=== PATIENT | male | born 1940 | race Caucasian/White ===

== ENCOUNTER 2017-02-04 13:15 | Emergency (ER) | payer OTHER ==
[2017-02-04 13:29] VITALS: TEMP 98.6; BMI 22.6
--- NOTE | 2017-02-04 16:31 | PDOC ---
History of Present Illness - General Chief Complaint: Wound Stated Complaint: INJURY Past History - Past Medical History Allergies/Adverse Reactions: Allergies Allergy/AdvReac Type Severity Reaction Status Date / Time No Known Allergies Allergy Verified 02/04/17 13:29 Home Medications: Ambulatory Orders Amlodipine Besylate [Norvasc] 10 mg PO DAILY 09/28/11 Atorvastatin Calcium 20 mg PO DAILY 09/28/11 Benadryl 25 mg PO Q12H 09/28/11 Gabapentin 300 mg PO TID 09/28/11 Metoprolol Tartrate 25 mg PO DAILY 09/28/11 Ranolazine [Ranexa] 500 mg PO BID 09/28/11 Sitagliptin Phosphate [Januvia] 100 mg PO DAILY 09/28/11 Tamsulosin HCl 0.4 mg PO DAILY 09/28/11 Tapentadol HCl [Nucynta] 100 mg PO PRN 09/28/11 Vit B12/Iod/mg/Zn/Se/Herb#193 [Adrenoid Capsule] 1,000 mcg PO DAILY 09/28/11 Anemia: No Asthma: No Cancer: No Cardiac Disorders: Yes (fer) CVA: No COPD: No CHF: No Dementia: No Diabetes: Yes GI Disorders: No Disorders: No HTN: Yes Hypercholesterolemia: Yes Liver Disease: No Seizures: No Thyroid Disease: No - Surgical History Cardiac Surgery: Yes (fer) - Psycho/Social/Smoking Cessation Hx Suicidal Ideation: No Smoking History: Former smoker Have you smoked in the past 12 months: No If you are a former smoker, when did you quit?: many years ago Information on smoking cessation initiated: No *Physical Exam - Vital Signs Last Vital Signs Temp Pulse Resp BP Pulse Ox 98.6 F 88 18 146/80 100 02/04/17 13:26 02/04/17 13:26 02/04/17 13:26 02/04/17 13:26 02/04/17 13:26
--- NOTE | 2017-02-04 16:35 | PDOC ---
History of Present Illness <Michelle Pickett Joanne - Last Filed: 02/04/17 18:18> - General History Source: Patient Exam Limitations: Dementia, Language Barrier - History of Present Illness Initial Comments: 02/04/17 17:18 76 y/o M with a PMHx of HTN, hypercholesterolemia, diabetes, CABG presents to the ED with right shoulder pain s/p mechanical fall yesterday. Patient reports he usually goes to [facility] ER, but heard the X-Rays are better here. He also reports bilateral lower leg edema, which he states is chronic since November 2016 from his hip surgery. Patient is a poor historian. 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 There is no evidence of blood thinners in his medication list. Patient states he is currently taking the following medications daily: Lasix (20 mg), Metoprolol (25 mg), Isosorbide ER (30 mg), and Dutasterida (0.5 mg). Patient's PCP was paged to obtain more information, but PCP does not take calls. Denies chest pain, SOB, headache, dizziness. Denies numbness or tingling. Denies fever, chills, cough, nausea, vomiting, diarrhea, constipation. Denies any other complaints. PCP: Dr. Soham Gonzalez <Shanique Newman - Last Filed: 02/04/17 18:45> - General Chief Complaint: Wound Stated Complaint: INJURY Time Seen by Provider: 02/04/17 16:35 Past History - Past Medical History Anemia: No Asthma: No Cancer: No Cardiac Disorders: Yes (fer) CVA: No COPD: No CHF: No Dementia: No Diabetes: Yes GI Disorders: No Disorders: No HTN: Yes Hypercholesterolemia: Yes Liver Disease: No Seizures: No Thyroid Disease: No - Surgical History Cardiac Surgery: Yes (fer) - Psycho/Social/Smoking Cessation Hx Suicidal Ideation: No Smoking History: Former smoker Have you smoked in the past 12 months: No If you are a former smoker, when did you quit?: many years ago Information on smoking cessation initiated: No <PiyushMichellechristine Rubio - Last Filed: 02/04/17 18:18> <Shanique Newman - Last Filed: 02/04/17 18:45> - Past Medical History Allergies/Adverse Reactions: Allergies Allergy/AdvReac Type Severity Reaction Status Date / Time No Known Allergies Allergy Verified 02/04/17 13:29 Home Medications: Ambulatory Orders Amlodipine Besylate [Norvasc] 10 mg PO DAILY 09/28/11 Atorvastatin Calcium 20 mg PO DAILY 09/28/11 Ranolazine [Ranexa] 500 mg PO BID 09/28/11 Sitagliptin Phosphate [Januvia] 100 mg PO DAILY 09/28/11 Tapentadol HCl [Nucynta] 100 mg PO PRN 09/28/11 Vit B12/Iod/mg/Zn/Se/Herb#193 [Adrenoid Capsule] 1,000 mcg PO DAILY 09/28/11 Diphenhydramine HCl [Benadryl -] 25 mg PO Q6H 02/04/17 Gabapentin 300 mg PO DAILY 02/04/17 Metoprolol Tartrate 25 mg PO DAILY 02/04/17 Tamsulosin HCl [Flomax] 0.4 mg PO DAILY 02/04/17 Review of Systems - Review of Systems Able to Perform ROS?: Yes Comments:: 02/04/17 17:50 CONSTITUTIONAL: Absent: fever, chills, diaphoresis, generalized weakness, malaise, loss of appetite HEENT: Absent: rhinorrhea, nasal congestion, throat pain, throat swelling, difficulty swallowing, mouth swelling, ear pain, eye pain, visual changes CARDIOVASCULAR: (+) bilateral lower extremity edema. Absent: chest pain, syncope , palpitations, irregular heart rate, lightheadedness RESPIRATORY: Absent: cough, shortness of breath, dyspnea with exertion, orthopnea, wheezing, stridor, hemoptysis GASTROINTESTINAL: Absent: abdominal pain, abdominal distension, nausea, vomiting , diarrhea, constipation, melena, hematochezia GENITOURINARY: Absent: dysuria, frequency, urgency, hesitancy, hematuria, flank pain, genital pain MUSCULOSKELETAL: (+) right shoulder pain. SKIN: Absent: rash, itching, pallor HEMATOLOGIC/IMMUNOLOGIC: Absent: easy bleeding, easy bruising, lymphadenopathy, frequent infections ENDOCRINE: Absent: unexplained weight gain, unexplained weight loss, heat intolerance, cold intolerance NEUROLOGIC: Absent: headache, focal weakness or paresthesias, dizziness, unsteady gait, seizure, mental status changes, bladder or bowel incontinence PSYCHIATRIC: Absent: anxiety, depression, suicidal or homicidal ideation, hallucinations. <Shanique Newman - Last Filed: 02/04/17 18:45> *Physical Exam - Vital Signs Last Vital Signs Temp Pulse Resp BP Pulse Ox 98.6 F 88 18 146/80 100 02/04/17 13:26 02/04/17 13:26 02/04/17 13:26 02/04/17 13:26 02/04/17 13:26 <Michelle Pickett - Last Filed: 02/04/17 18:18> - Vital Signs Last Vital Signs Temp Pulse Resp BP Pulse Ox 98.6 F 88 18 146/80 100 02/04/17 13:26 02/04/17 13:26 02/04/17 13:26 02/04/17 13:26 02/04/17 13:26 - Physical Exam Comments: 02/04/17 17:52 GENERAL: Well developed, well nourished. Awake and alert. No acute distress. Thin. HEENT: No evidence of any trauma. Normocephalic, PERRLA, EOMI. No conjunctival pallor. Sclera are non-icteric. Moist mucous membranes. Oropharynx is clear. NECK: Supple. Full ROM. No JVD. Carotid pulses 2+ and symmetric, without bruits. No thyromegaly. No lymphadenopathy. CARDIOVASCULAR: Regular rate and rhythm. No murmurs, rubs, or gallops. Distal pulses are 2+ and symmetric. PULMONARY: No evidence of respiratory distress. Lungs clear to auscultation bilaterally. No wheezing, rales or rhonchi. ABDOMINAL: Soft. Non-tender. Non-distended. No rebound or guarding. No organomegaly. Normoactive bowel sounds. MUSCULOSKELETAL: Tenderness on right upper scapula and right AC joint. Able to raise both arms equally, with limited mobility. No obvious bony deformities. No CVA tenderness. BACK: No cervical vertebral tenderness. EXTREMITIES: Good DP and TP pulses bilaterally. Good radial and ulnar pulses and are equal bilaterally. Chronic venous stasis. Chronic mild peripheral edema. Feet are warm. No active cellulitis. SKIN: Scar on right hip. Old fem pop scar on left leg. Warm and dry. Normal capillary refill. No rashes. No jaundice. NEUROLOGICAL: Alert, awake, ambulatory. Cranial nerves 2-12 intact. No deficits to light touch and temperature in face, upper extremities and lower extremities. No motor deficits in the in face, upper extremities and lower extremities. Normoreflexic in the upper and lower extremities. Normal speech. PSYCHIATRIC: Cooperative. Good eye contact. Appropriate mood and affect. <Shanique Newman - Last Filed: 02/04/17 18:45> ED Treatment Course - RADIOLOGY Radiograph Interpretation: 02/04/17 18:39 Shoulder X-Ray Reported by Dr. Heraclio Casas Impression: No radiographic evidence of acute pathology. <Shanique Newman - Last Filed: 02/04/17 18:45> Medical Decision Making - Medical Decision Making 02/04/17 17:03 76-year-old male who is a poor historian presents without family members and states he is here to have an x-ray of his right shoulder. He [facility]. [facility] <Michelle Pickett - Last Filed: 02/04/17 18:18> - Medical Decision Making 02/04/17 18:[address] Michel Sharma at 16:54. . Paged Dr. Soham Gonzalez at 16:58. . <Shanique Newman - Last Filed: 02/04/17 18:45> *DC/Admit/Observation/Transfer <Michelle Pickett - Last Filed: 02/04/17 18:18> - Attestations Scribe Attestion: 02/04/17 18:12 Documentation prepared by Shanique Newman, acting as medical laboratory specialist for Michelle Pickett MD. <Shanique Newman - Last Filed: 02/04/17 18:45> Diagnosis at time of Disposition: Right shoulder pain Qualifiers: Chronicity: acute Qualified Code(s): M25.511 - Pain in right shoulder - Discharge Dispostion Disposition: HOME Condition at time of disposition: Stable - Referrals Referrals: Soham Gonzalez [Primary Care Provider] - - Patient Instructions Printed Discharge Instructions: DI for Shoulder Pain Additional Instructions: please take Tylenol for pain If your pain persists ,please see your regular doctor next week return for any worsening symptoms
[2017-02-04] MEDS ORDERED: ACETAMINOPHEN 325 MG TABLET (FP) PO ONE (18:24)
[2017-02-04] MEDS ORDERED: ACETAMINOPHEN 325 MG TABLET (FP) ONE (18:36)
[2017-02-04 18:44] VITALS: BP 151/79; PULSE 72
== END 2017-02-04 18:43 | disposition home or self-care (01) ==
LOC: JER 13:15
DX: M25.511 Pain in right shoulder (principal); R60.0 Localized edema; M79.604 Pain in right leg; M79.605 Pain in left leg; W19.XXXA Unspecified fall, initial encounter; Y93.89 Activity, other specified; Y92.89 Other specified places as the place of occurrence of the external cause; I25.10 Atherosclerotic heart disease of native coronary artery without angina pectoris; I10 Essential (primary) hypertension; Z95.1 Presence of aortocoronary bypass graft; E11.9 Type 2 diabetes mellitus without complications; Z79.84 Long term (current) use of oral hypoglycemic drugs; E78.00 Pure hypercholesterolemia, unspecified
CPT/HCPCS: 73030-TC-RT; 99284-25

== ENCOUNTER 2018-04-12 14:47 | Emergency (ER) | payer OTHER ==
[2018-04-12 14:58] VITALS: BP 149/71; PULSE 83; TEMP 98; BMI 26.1
--- NOTE | 2018-04-12 16:27 | PDOC ---
History of Present Illness - General Chief Complaint: Pain, Acute Stated Complaint: EVALUATION Time Seen by Provider: 04/12/18 15:32 History Source: Patient Exam Limitations: Language Barrier - History of Present Illness Initial Comments: 04/12/18 16:22 Pt is a 77yo m with PMH of DM, HTN, DM, CAD s/p stent 4 years ago presenting to ED because "my liver is no good". Pt sees Dr. Gonzalez and had blood tests done at [facility] about 1 week ago. He was told to see a liver specialist. Appointment was scheduled 5 weeks from now but pt is apprehensive and wants an appointment sooner. He admits to intermittent abdominal pain that has been going on for 5 months, constipation, pain with urination and nausea. He denies chest pain, SOB, vomiting, diarrhea, bloody stools, hematuria, fevers, chills. Still tolerating PO. Last BM was yesterday. PMD: Carlos PMH: see hpi PSH: see hpi Meds: see med rec Social: denies Allergies: nkda Past History - Past Medical History Allergies/Adverse Reactions: Allergies Allergy/AdvReac Type Severity Reaction Status Date / Time No Known Allergies Allergy Verified 04/12/18 14:55 Home Medications: Ambulatory Orders Amlodipine Besylate [Norvasc] 10 mg PO DAILY 09/28/11 Atorvastatin Calcium 20 mg PO DAILY 09/28/11 Metoprolol Tartrate 25 mg PO DAILY 02/04/17 Tamsulosin HCl [Flomax] 2 cap PO DAILY 02/04/17 Clopidogrel Bisulfate [Plavix -] 75 mg PO DAILY 04/12/18 Donepezil HCl [Aricept -] 5 mg PO DAILY 04/12/18 Dutasteride [Avodart] 0.5 mg PO DAILY 04/12/18 Furosemide [Lasix -] 20 mg PO DAILY 04/12/18 Levothyroxine [Synthroid -] 50 mcg PO DAILY 04/12/18 Linagliptin [Tradjenta] 5 mg PO DAILY 04/12/18 Meclizine HCl [Motion-Time] 25 mg PO TID PRN 04/12/18 Montelukast Na [Singulair -] 10 mg PO HS 04/12/18 Naloxegol Oxalate [Movantik] 12.5 mg PO DAILY 04/12/18 Omeprazole/Sodium Bicarbonate [Omeprazole-Bicarb 40-1,100 Cap] 1 each PO DAILY 04/12/18 Tramadol HCl 50 mg PO ASDIR 04/12/18 Anemia: No Asthma: No Cancer: No Cardiac Disorders: Yes (fer) CVA: No COPD: No CHF: No Dementia: No Diabetes: Yes GI Disorders: No Disorders: No HTN: Yes Hypercholesterolemia: Yes Liver Disease: No Seizures: No Thyroid Disease: No - Surgical History Cardiac Surgery: Yes (fer) - Suicide/Smoking/Psychosocial Hx Smoking History: Unknown if ever smoked Have you smoked in the past 12 months: No If you are a former smoker, when did you quit?: many years ago Review of Systems - Review of Systems Constitutional: No: Symptoms Reported HEENTM: No: Symptoms Reported Respiratory: No: Symptoms reported Cardiac (ROS): No: Symptoms Reported ABD/GI: Yes: See HPI, Constipated, Nausea. No: Diarrhea, Rectal Bleeding, Vomiting, Abdominal cramping : Yes: Burning. No: Frequency, Hematuria, Incontinence, Urgency Musculoskeletal: No: Symptoms Reported Integumentary: No: Symptoms Reported Neurological: No: Symptoms reported *Physical Exam - Vital Signs Last Vital Signs Temp Pulse Resp BP Pulse Ox 98 F 83 18 149/71 100 04/12/18 14:56 04/12/18 14:56 04/12/18 14:56 04/12/18 14:56 04/12/18 14:56 - Physical Exam Comments: 04/13/18 01:00 EDT Pt walking around room General Appearance: Yes: Nourished, Appropriately Dressed. No: Apparent Distress HEENT: positive: EOMI, MELBA, Normal ENT Inspection Neck: positive: Trachea midline, Supple. negative: Lymphadenopathy (R), Lymphadenopathy (L) Respiratory/Chest: positive: Chest Tender, Lungs Clear, Normal Breath Sounds. negative: Crackles, Rales, Rhonchi Cardiovascular: positive: Regular Rhythm, Regular Rate, S1, S2. negative: Edema , JVD, Murmur Vascular Pulses: Carotid (R): 2+, Carotid (L): 2+, Dorsalis-Pedis (R): 2+, Doralis-Pedis (L): 2+ Gastrointestinal/Abdominal: positive: Normal Bowel Sounds, Soft, Tenderness (LLQ ) Musculoskeletal: positive: Normal Inspection. 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 Pt sees Dr. Gonzalez and had blood tests done at [facility] about 1 week ago. Vitals: wnl PE: LLQ abdominal tenderness 04/12/18 17:18 called [facility], no records. Called Dr. Gonzalez office. Dr Carlson will call back 04/12/18 17:20 Laboratory Tests 04/12/18 04/12/18 16:35 16:35 WBC 5.2 Hgb 13.7 Hct 40.0 RDWC 16.4 H Plt Count 115 L Chloride 110 H Anion Gap 4 L Creatinine 1.8 H Calcium 8.3 L AST 22 ALT 25 Alkaline Phosphatase 56 Total Protein 7.6 Albumin 3.9 LFTs normal. Cr 1.8 unsure if new or not. 04/12/18 17:51 Called office again. NO response, no prior to compare. Pt not having active complaints. Will give GI follow up. *DC/Admit/Observation/Transfer Diagnosis at time of Disposition: Kidney function abnormal - Discharge Dispostion Disposition: HOME Condition at time of disposition: Good Decision to Admit order: No - Referrals Referrals: Soham Gonzalez [Primary Care Provider] - Jose M Li DO [Staff Physician] - - Patient Instructions Additional Instructions: You were seen here today for evaluation of your liver. Your liver tests were normal but your kidney function is abdnormal. I recommend calling a GI doctor: Dr. Li Also a kidney doctor: Dr. Henderson Come back to the emergency room if: pain gets worse, you start vomiting, you have diarrhea, you develop fever or if any new concerning symptom develops. Thank you - Post Discharge Activity
[2018-04-12 16:44] LABS: BASO % 0.9 % (0-2.0); EOS % 5.7 % (0-4.5); HEMOGLOBIN 13.7 GM/dL (11.7-16.9); LYMPH % 23.9 % (8-40); MCH 30.1 pg (25.7-33.7); MCHC 34.4 g/dl (32.0-35.9); MEAN CELL VOLUME 87.5 fl (80-96); MEAN PLT VOLUME 8.3 fl (7.5-11.1); MONO % 8.5 % (3.8-10.2); PLATELET COUNT 115 K/MM3 (134-434); RBC 4.57 M/mm3 (4.00-5.60); RDW 16.4 % (11.9-15.9); WHITE BLOOD COUNT 5.2 K/mm3 (4.0-10.0)
[2018-04-12 17:10] LABS: ALBUMIN 3.9 g/dl (3.4-5.0); ALK PHOS 56 U/L (45-117); ANION GAP 4 MMOL/L (8-16); BILIRUBIN,TOTAL 0.4 mg/dL (0.2-1); BLOOD UREA NITROGEN 17 mg/dL (7-18); CALCIUM 8.3 mg/dL (8.5-10.1); CHLORIDE 110 mmol/L (98-107); CO2 28 mmol/L (21-32); CREATININE 1.8 mg/dL (0.55-1.3); GLUCOSE,RANDOM 99 mg/dL (74-106); POTASSIUM 4.4 mmol/L (3.5-5.1); SGOT/AST 22 U/L (15-37); SGPT/ALT 25 U/L (13-61); SODIUM 142 mmol/L (136-145); TOT PROT 7.6 g/dl (6.4-8.2)
--- NOTE | 2018-04-12 19:01 | PDOC ---
Attending Attestation - Resident Resident Name: SagrarioJuju - ED Attending Attestation I have performed the following: I have examined & evaluated the patient, The case was reviewed & discussed with the resident, I agree w/resident's findings & plan, Exceptions are as noted - HPI HPI: 04/12/18 18:56 77 yo male with h/o htn dm hld, cad, here with c/o concerns for previously reported LFT abnormality. pt states was seen at [facility], told his lft were abnormal. couldn't get appt with gi/ liver in timely manner so came, no current complaints. no jaundice. no c/o abdominal pain. - Physicial Exam PE: 04/12/18 18:58 awake alert no scleral icterus. lungs clear bilaterally heart rrr no mrg abd soft nt nd. ext wwp. nuero alert oriented x 3. - Medical Decision Making 04/12/18 18:59 plan, will repeat pt labs . unclear if understanding. reivew pt chart reveals he had ct a/p within last two month. noted splenomegaly, no liver abnormalities noted. also had renal us 03/13, which was unremarkable. creatinine 1.8, unsure if pt baseline. pt lfts are normal. called. pt pcp dr sanders, dr cavazos covering. awaiting call back. given copy of labs, recent ct a/p and renal us. told to follow up with Layo ALBRECHT,
== END 2018-04-12 19:22 | disposition home or self-care (01) ==
LOC: JER 14:47
DX: R94.4 Abnormal results of kidney function studies (principal); I25.10 Atherosclerotic heart disease of native coronary artery without angina pectoris; I10 Essential (primary) hypertension; Z95.1 Presence of aortocoronary bypass graft; Z95.5 Presence of coronary angioplasty implant and graft; E11.9 Type 2 diabetes mellitus without complications; E78.00 Pure hypercholesterolemia, unspecified
CPT/HCPCS: 36415; 80053; 85025; 99282-25

== ENCOUNTER 2018-04-18 13:35 | Emergency (ER) | payer OTHER ==
[2018-04-18 14:17] VITALS: BMI 26.1
[2018-04-18] MEDS ORDERED: ALBUTEROL SO4 2.5/IPRATROPIUM 0.5 INH SOL 3 ML VIAL.NEB. NEB ONE ×2 (14:32→14:59)
--- NOTE | 2018-04-18 14:45 | PDOC ---
Attending Attestation - Resident Resident Name: Piyush Joel - ED Attending Attestation I have performed the following: I have examined & evaluated the patient, The case was reviewed & discussed with the resident, I agree w/resident's findings & plan, Exceptions are as noted - HPI HPI: 04/18/18 14:44 77yo M hx DM, HTN, CAD s/p stents p/w 1 week of CP, rhinorrhea, subjective fevers, productive cough. Pt tried to see Dr. Gonzalez this AM but he was not in the office prompting him to come to the ED. Pt states CP gets worse when he walks. Also reports mild SOB. No treatements tried. No fevers, chills, focal weakness/numbness, headache, abd pain, N/V/D. - Physicial Exam PE: 04/18/18 15:17 agree with resident exam - Medical Decision Making 04/18/18 15:17 77yo M MMP including CHF, CAD presents to the ED with URI sxs and exertional CP. Vitals unremarkable. Exam with mild wheezing. CP is not reproducible. DDx includes ACS vs PNA vs viral syndrome. HS elevated due to age, risk factors, EKG. Plan -labs -XR -EKG -admit 04/18/18 16:36 Work up remarkable for CXR with new b/l effusions In the setting of CP, new effusions, and HS of 5 our plan was to admit the patient for cardiac work up. Pt does not want to stay in the hospital as he wishes to sleep in his own bed. The patient is clinically sober, free from distracting injury, appears to have intact insight and judgment and reason and in my opinion has the capacity to make decisions. The patient presents with chest pain, and uri symptoms. I have explained that I am concerned that this may represent ACS/a problem with his heart; he has verbalized an understanding of my concerns. I have told the patient that while his labs were normal, he could still have problems with his heart. I have discussed the need for admission to get more information about potential causes of the patients chest pain. I have told the patient that if he leaves and has chest pain, he could get much worse, could become critically ill, and could possibly become disabled or . I have offered to give the patient more pain medication. I have asked them to stay in the hospital for serial troponins. The patient is not willing to undergo an admission. He is unwilling to stay overnight for monitoring. He is refusing any further care and is leaving against medical advice. Dr. Joel has discussed the pt's case with his PMD Dr. Gonzalez who states pt had a recent cardiac work up and often presents to his office for CP. Despite this, he agrees with pt having capacity to leave AMA. I am unable to convince the patient to stay, I have asked him to return as soon as possible to complete his evaluation. I have answered all of his questions. Heart Score/ECG Review - History History: Slightly suspicious - Electrocardiogram EKG: Non specific repolarization disturbance - Age Age: >/= 65 - Risk Factors Based on the list above the patient has:: >/=3 risk factors or Hx atherosclerotic disease - Troponin Troponin: </= normal limit - Score Heart Score - Total: 5 #1 04/18/18 16:22 Twelve-lead EKG was performed and reviewed by me. Normal sinus rhythm, rate 94. Normal axis. Q waves in anterior septal leads. No old EKG to compare.
--- NOTE | 2018-04-18 14:53 | PDOC ---
History of Present Illness - General Chief Complaint: Cold Symptoms Stated Complaint: COLD SYMPTOMS Time Seen by Provider: 04/18/18 14:25 History Source: Patient - History of Present Illness Initial Comments: 04/18/18 14:48 Patient is a 77M with history of CAD, HTN, DM here today complaining of upper respiratory symptoms. Patient endorses subjective fever, rhinorrhea, cough, and shortness of breath. Patient states that he has chest pain constantly, worsened with exertion. Denies chest pain at rest. Patient states that he is here hoping to get antibiotics. Denies ear pain, sore throat. Denies nausea, vomiting. States that he "sometimes" takes a "water pill". Denies abdominal pain, dysuria. Endorses bodyaches. Patient states that he to be seen by Dr Gonzalez but wasn't able to be seen. Past History - Past Medical History Allergies/Adverse Reactions: Allergies Allergy/AdvReac Type Severity Reaction Status Date / Time No Known Allergies Allergy Verified 04/18/18 14:13 Home Medications: Ambulatory Orders Amlodipine Besylate [Norvasc] 10 mg PO DAILY 09/28/11 Atorvastatin Calcium 20 mg PO DAILY 09/28/11 Metoprolol Tartrate 25 mg PO DAILY 02/04/17 Tamsulosin HCl [Flomax] 2 cap PO DAILY 02/04/17 Clopidogrel Bisulfate [Plavix -] 75 mg PO DAILY 04/12/18 Donepezil HCl [Aricept -] 5 mg PO DAILY 04/12/18 Dutasteride [Avodart] 0.5 mg PO DAILY 04/12/18 Furosemide [Lasix -] 20 mg PO DAILY 04/12/18 Levothyroxine [Synthroid -] 50 mcg PO DAILY 04/12/18 Linagliptin [Tradjenta] 5 mg PO DAILY 04/12/18 Meclizine HCl [Motion-Time] 25 mg PO TID PRN 04/12/18 Montelukast Na [Singulair -] 10 mg PO HS 04/12/18 Naloxegol Oxalate [Movantik] 12.5 mg PO DAILY 04/12/18 Omeprazole/Sodium Bicarbonate [Omeprazole-Bicarb 40-1,100 Cap] 1 each PO DAILY 04/12/18 Tramadol HCl 50 mg PO ASDIR 04/12/18 Anemia: No Asthma: No Cancer: No Cardiac Disorders: Yes (fer) CVA: No COPD: No CHF: No Dementia: No Diabetes: Yes GI Disorders: No Disorders: No HTN: Yes Hypercholesterolemia: Yes Liver Disease: No Seizures: No Thyroid Disease: No - Surgical History Cardiac Surgery: Yes (fer) - Immunization History Immunization Up to Date: Yes - Suicide/Smoking/Psychosocial Hx Smoking History: Unknown if ever smoked Have you smoked in the past 12 months: No If you are a former smoker, when did you quit?: many years ago Information on smoking cessation initiated: No Hx Alcohol Use: No Drug/Substance Use Hx: No Substance Use Type: None Review of Systems - Review of Systems Comments:: 04/18/18 14:50 GENERAL/CONSTITUTIONAL: +fever no chills. No weakness. HEAD, EYES, EARS, NOSE AND THROAT: No change in vision. No ear pain or discharge. No sore throat. CARDIOVASCULAR: +chest pain +shortness of breath RESPIRATORY: +cough, no wheezing, or hemoptysis. GASTROINTESTINAL: No nausea, vomiting, diarrhea or constipation. GENITOURINARY: No dysuria, frequency, or change in urination. MUSCULOSKELETAL: +bodyaches. No neck or back pain. SKIN: No rash NEUROLOGIC: No headache, vertigo, loss of consciousness, or change in strength/ sensation. ENDOCRINE: No increased thirst. No abnormal weight change HEMATOLOGIC/LYMPHATIC: No anemia, easy bleeding, or history of blood clots. ALLERGIC/IMMUNOLOGIC: No hives or skin allergy. *Physical Exam - Vital Signs Last Vital Signs Temp Pulse Resp BP Pulse Ox 98.2 F 88 16 150/71 98 04/18/18 14:00 04/18/18 14:00 04/18/18 14:00 04/18/18 14:00 04/18/18 14:00 - Physical Exam Comments: 04/18/18 14:51 GENERAL: Awake, alert, and fully oriented, in no acute distress HEAD: No signs of trauma, normocephalic, atraumatic EYES: PERRLA, EOMI, sclera anicteric, conjunctiva clear ENT: Auricles normal inspection, hearing grossly normal, nares patent, oropharynx clear without exudates. Moist mucosa NECK: Normal ROM, supple, no lymphadenopathy, JVD, or masses LUNGS: No distress, speaks full sentences, wheezing and coarse breath sounds L>R HEART: Regular rate and rhythm, normal S1 and S2, no murmurs, rubs or gallops, peripheral pulses normal and equal bilaterally. ABDOMEN: Soft, nontender, normoactive bowel sounds. No guarding, no rebound. No masses EXTREMITIES: Normal inspection, Normal range of motion, no edema. No clubbing or cyanosis. NEUROLOGICAL: Cranial nerves II through XII grossly intact. Normal speech, normal gait, no focal sensorimotor deficits SKIN: Warm, Dry, normal turgor, no rashes or lesions noted. ED Treatment Course - LABORATORY CBC & Chemistry Diagram: 04/18/18 14:58 04/18/18 14:58 - RADIOLOGY Radiology Studies Ordered: Category Date Time Status CHEST PA & LAT [RAD] Stat Radiology 04/18/18 14:31 Ordered Medical Decision Making - Medical Decision Making 04/18/18 14:52 Patient is a 77M with history of DM, HTN, CAD here today with upper respiratory symptoms. Vitals normal and stable. DDx includes, but is not limited to: pneumonia, flu, copd exacerbation, chf exacerbation. Will workup with cardiac labs, ekg, cxr, flu swab. 04/18/18 15:30 CXR shows bilateral effusions 04/18/18 15:44 Flu negative. 04/18/18 15:51 CBC normal, trop undetectable. BNP, EKG pending. 04/18/18 16:44 EKG shows normal sinus rhythm with rate of 94. No st elevations/depressions. Normal axis. V2/V3 shows LVH pattern. No t wave changes. Q waves in Anterior leads. Dr Gonzalez contacted, pmd. Patient just received cardiac clearance for a related procedure. Will be able to see patient in office. Patient does not wish to stay. Will AMA patient for chest pain observation. *DC/Admit/Observation/Transfer Diagnosis at time of Disposition: Chest pain, Viral URI - Discharge Dispostion Disposition: AGAINST MEDICAL ADVICE Condition at time of disposition: Stable Decision to Admit order: No - Referrals Referrals: Soham Gonzalez [Primary Care Provider] - - Patient Instructions Printed Discharge Instructions: DI for Viral Upper Respiratory Infection -- Adult, DI for Chest Pain Additional Instructions: Please follow up with your primary care doctor regarding your chest pain as soon as possible. You left against medical advice from the ED today, you are welcome to return at any time. - Post Discharge Activity
[2018-04-18 15:18] LABS: BASO % 0.7 % (0-2.0); EOS % 1.5 % (0-4.5); HEMATOCRIT 41.5 % (35.4-49); HEMOGLOBIN 13.8 GM/dL (11.7-16.9); LYMPH % 14.1 % (8-40); MCH 29.2 pg (25.7-33.7); MCHC 33.3 g/dl (32.0-35.9); MEAN CELL VOLUME 87.5 fl (80-96); MONO % 9.2 % (3.8-10.2); NEUT % 74.5 % (42.8-82.8); PLATELET COUNT 138 K/MM3 (134-434); RBC 4.74 M/mm3 (4.00-5.60); RDW 16.1 % (11.9-15.9); WHITE BLOOD COUNT 6.6 K/mm3 (4.0-10.0)
[2018-04-18 15:32] LABS: INR 1.13 (0.83-1.09); PROTHROMBIN TIME (PATIENT) 13.3 SEC (9.7-13.0)
[2018-04-18 15:44] LABS: ALBUMIN 3.8 g/dl (3.4-5.0); ALK PHOS 59 U/L (45-117); ANION GAP 6 MMOL/L (8-16); BILIRUBIN,TOTAL 0.7 mg/dL (0.2-1); BLOOD UREA NITROGEN 16 mg/dL (7-18); CALCIUM 8.6 mg/dL (8.5-10.1); CHLORIDE 102 mmol/L (98-107); CO2 28 mmol/L (22-28); CREATININE 1.6 mg/dL (0.55-1.3); GLUCOSE,RANDOM 101 mg/dL (74-106); MAGNESIUM 2.3 mg/dL (1.8-2.4); POTASSIUM 4.8 mmol/L (3.5-5.1); SGOT/AST 29 U/L (15-37); SGPT/ALT 34 U/L (13-61); SODIUM 136 mmol/L (136-145); TOT PROT 7.5 g/dl (6.4-8.2)
[2018-04-18 16:01] LABS: N-TERMINAL BNP 2273.9 pg/ml (5-450)
[2018-04-18 17:16] VITALS: BP 147/77; PULSE 74; TEMP 98.1
--- NOTE | 2018-04-20 19:17 | EKG ---
Test Reason : Blood Pressure : / mmHG Vent. Rate : 094 BPM Atrial Rate : 094 BPM P-R Int : 160 ms QRS Dur : 080 ms QT Int : 338 ms P-R-T Axes : 035 -05 018 degrees QTc Int : 422 ms NORMAL SINUS RHYTHM POSSIBLE LEFT ATRIAL ENLARGEMENT ANTEROSEPTAL INFARCT , AGE UNDETERMINED ABNORMAL ECG NO PREVIOUS ECGS AVAILABLE Confirmed by RENITA BUNCH MD ([id number]) on 04/20/2018 7:16:41 PM Referred By: Confirmed By:RENITA BUNCH MD
== END 2018-04-18 17:15 | disposition left against medical advice (07) ==
LOC: JER 13:35
PROC: 3E0F7GC Introduction of Other Therapeutic Substance into Respiratory Tract, Via Natural or Artificial Opening (ICD-10-PCS; principal; 2018-04-18)
DX: R07.9 Chest pain, unspecified (principal); J06.9 Acute upper respiratory infection, unspecified; B97.89 Other viral agents as the cause of diseases classified elsewhere; I25.10 Atherosclerotic heart disease of native coronary artery without angina pectoris; I11.0 Hypertensive heart disease with heart failure; Z95.5 Presence of coronary angioplasty implant and graft; E11.9 Type 2 diabetes mellitus without complications; Z79.84 Long term (current) use of oral hypoglycemic drugs; E78.00 Pure hypercholesterolemia, unspecified
CPT/HCPCS: 36415; 71046-TC-FY; 80053; 82550; 83735; 83880; 84484; 85025; 85610; 87804; 93005; 93010; 94640; 99284-25